=== PATIENT | male | born 1945 | race Caucasian/White ===

== ENCOUNTER 2018-06-21 12:00 | Emergency (ER) | payer MEDICARE, BC, OTHER ==
[2018-06-21] MEDS: predniSONE 20 MG TAB PO (13:30)
[2018-06-21] MEDS: NORCO, ANEXSIA 5/325MG TABLET (HYDROcodone/ACETAMINOPHEN) PO (13:45)
[2018-06-21] MEDS: IPRATROPIUM 0.5MG/ALBUTEROL 2.5MG INH SOL UD 3ML (DUONEB)(J7620) NEB ×2 (14:42→14:43)
[2018-06-21 15:20] LABS: GLUCOSE, FASTING 122 MG/DL (70-100)
[2018-06-21 15:21] LABS: ANION GAP 10 MEQ/L (8-16); AST/SGOT 22 U/L (7-37); BLOOD UREA NITROGEN 17 MG/DL (7-18); CALCIUM LEVEL 8.9 MG/DL (8.8-10.2); CARBON DIOXIDE LEVEL 23 MEQ/L (21-32); CHLORIDE LEVEL 107 MEQ/L (98-107); CREATININE FOR GFR 1.08 MG/DL (0.70-1.30); GLOMERULAR FILTRATION RATE > 60.0 (>42); POTASSIUM SERUM 4.3 MEQ/L (3.5-5.1); SODIUM LEVEL 140 MEQ/L (136-145)
[2018-06-21 15:22] LABS: ALBUMIN 4.1 GM/DL (3.2-5.2); ALBUMIN/GLOBULIN RATIO 1.28 (1.00-1.93); ALKALINE PHOSPHATASE 72 U/L (45-117); ALT/SGPT 35 U/L (12-78); BILIRUBIN,DIRECT 0.1 MG/DL (0.0-0.2); BILIRUBIN,TOTAL 0.3 MG/DL (0.2-1.0); NT-PRO BNP 27 PG/ML (<125); TOTAL PROTEIN 7.3 GM/DL (6.4-8.2)
[2018-06-21 16:02] LABS: HEMATOCRIT 39.6 % (42.0-52.0); HEMOGLOBIN 13.2 g/dl (13.5-17.5); MEAN CORPUSCULAR HEMOGLOBIN 30.3 pg (27.0-33.0); MEAN CORPUSCULAR HGB CONC 33.3 g/dl (32.0-36.5); PLATELET COUNT, AUTOMATED 172 10^3/uL (150-450); RED BLOOD COUNT 4.35 10^6/uL (4.30-6.10); RED CELL DISTRIBUTION WIDTH 14.6 % (11.5-14.5)
== END 2018-06-21 16:23 | disposition home or self-care (01) ==
LOC: M ED 12:00
DX: J20.9 Acute bronchitis, unspecified (principal); E11.9 Type 2 diabetes mellitus without complications; M19.90 Unspecified osteoarthritis, unspecified site; G62.9 Polyneuropathy, unspecified; R91.1 Solitary pulmonary nodule; Z79.82 Long term (current) use of aspirin; Z79.4 Long term (current) use of insulin; Z79.899 Other long term (current) drug therapy; Z88.1 Allergy status to other antibiotic agents; Z88.8 Allergy status to other drugs, medicaments and biological substances; Z91.040 Latex allergy status
CPT/HCPCS: 71046

== ENCOUNTER 2018-06-27 21:09 | Emergency (ER) | payer MEDICARE, BC ==
[2018-06-27 21:55] LABS: KETONE, URINE AUTO RFX NEGATIVE (NEGATIVE); LEUKOCYTE ESTERASE UR AUTO RFX NEGATIVE (NEGATIVE); MUCUS, URINE RFX SMALL (NEGATIVE); NITRITE, URINE AUTO RFX NEGATIVE (NEGATIVE); RBC, URINE AUTO RFX 1 /HPF (0-3); SPECIFIC GRAVITY UR AUTO RFX 1.011 (1.002-1.035); SQUAM EPITHELIAL CELL UR AURFX 0 /HPF (0-6); WBC, URINE AUTO RFX 1 /HPF (0-3)
[2018-06-27 23:17] LABS: BASO # 0.1 10^3/uL (0.0-0.2); EOS # 0.1 10^3/uL (0.0-0.50); EOS % 0.8 % (0.0-3.0); HEMATOCRIT 43.1 % (42.0-52.0); HEMOGLOBIN 14.3 g/dl (13.5-17.5); IMMATURE GRANULOCYTE % 3.3 % (0-3.0); LYMPH # 2.2 10^3/uL (1.5-4.5); LYMPH % 21.8 % (24.0-44.0); MEAN CORPUSCULAR HEMOGLOBIN 30.4 pg (27.0-33.0); MEAN CORPUSCULAR HGB CONC 33.2 g/dl (32.0-36.5); MEAN CORPUSCULAR VOLUME 91.7 fl (80.0-96.0); MONO # 0.8 10^3/uL (0.0-0.8); MONO % 7.7 % (0.0-5.0); NEUTROPHILS # 6.6 10^3/uL (1.8-7.7); NEUTROPHILS % 65.4 % (36.0-66.0); PLATELET COUNT, AUTOMATED 218 10^3/uL (150-450); RED CELL DISTRIBUTION WIDTH 14.9 % (11.5-14.5); WHITE BLOOD COUNT 10.1 10^3/uL (4.0-10.0)
[2018-06-27 23:36] LABS: ANION GAP 9 MEQ/L (8-16); BLOOD UREA NITROGEN 19 MG/DL (7-18); C REACTIVE PROTEIN QUANTITATIV < 0.30 MG/DL (0.00-0.30); CALCIUM LEVEL 9.1 MG/DL (8.8-10.2); CARBON DIOXIDE LEVEL 25 MEQ/L (21-32); CHLORIDE LEVEL 108 MEQ/L (98-107); CREATININE FOR GFR 0.98 MG/DL (0.70-1.30); GLOMERULAR FILTRATION RATE > 60.0 (>42); GLUCOSE, FASTING 138 MG/DL (70-100); POTASSIUM SERUM 4.4 MEQ/L (3.5-5.1); SODIUM LEVEL 142 MEQ/L (136-145)
[2018-06-28] MEDS: AMOXICILLIN 500 MG CAP PO (00:08)
== END 2018-06-28 00:17 | disposition home or self-care (01) ==
LOC: M ED 06-28 00:17
DX: N41.9 Inflammatory disease of prostate, unspecified (principal); N28.1 Cyst of kidney, acquired; N21.0 Calculus in bladder; K76.89 Other specified diseases of liver; E10.9 Type 1 diabetes mellitus without complications; I10 Essential (primary) hypertension; J45.909 Unspecified asthma, uncomplicated; D64.9 Anemia, unspecified; G20 Parkinson's disease; M06.9 Rheumatoid arthritis, unspecified; Z88.1 Allergy status to other antibiotic agents; G35 Multiple sclerosis; Z79.899 Other long term (current) drug therapy; Z79.82 Long term (current) use of aspirin; Z79.4 Long term (current) use of insulin; Z88.3 Allergy status to other anti-infective agents; Z88.8 Allergy status to other drugs, medicaments and biological substances; Z91.040 Latex allergy status
CPT/HCPCS: 74176

== ENCOUNTER 2019-02-01 12:57 | Emergency (ER) | payer MEDICARE, BC ==
[~2019-02-01] VITALS: Ht 195.6 cm; Wt 117.8 kg
[~2019-02-01 12:57] MED LIST: ALFU10TA2 PO; AMOX500C PO; ASPI81TA85 PO; FOLI1TAB11 PO; HUMA75VL SC; HYDR200T3 PO; IPRA0.00 NEB; LISI-1046 PO; METH5INJ SC; NEUR300C PO; NORC1TAB7 PO; PRED20TA PO; PROAAER10 INH; PROV100T25 PO; SIMV10TA2 PO; ZITHTAB PO; [UNRECOGNIZED DRUG - CODE] SL
[2019-02-01] MEDS ORDERED: CIPR-249 PO (15:03)
[2019-02-01 15:05] VITALS: BP 135/80
--- NOTE | 2019-02-02 07:06 | REP ---
ULTRASOUND URINARY BLADDER: Real-time sonographic evaluation of the urinary bladder performed. Bladder measures 5.4 x 5.5 x 7.8 cm for a total volume of 123 mL. Prostate is significantly enlarged measuring 6.1 x 6.6 x 7.1 cm for a total volume of 149.5 mL. Ureteral jets could not be visualized. No calculi are seen in the bladder. Postvoid residual is 6 mL. No other gross abnormalities are seen. Electronically Signed by Fredo Valverde MD 02/02/2019 11:27 A
== END 2019-02-01 15:14 | disposition home or self-care (01) ==
LOC: M ED 12:57
DX: N10 Acute pyelonephritis (principal); N40.1 Benign prostatic hyperplasia with lower urinary tract symptoms; Z87.440 Personal history of urinary (tract) infections; G20 Parkinson's disease; G62.9 Polyneuropathy, unspecified; Z95.1 Presence of aortocoronary bypass graft; Z79.82 Long term (current) use of aspirin; Z79.4 Long term (current) use of insulin; Z79.899 Other long term (current) drug therapy; Z88.8 Allergy status to other drugs, medicaments and biological substances; Z88.1 Allergy status to other antibiotic agents; Z91.040 Latex allergy status

== ENCOUNTER 2021-03-28 09:53 | Emergency (ER) | payer MEDICARE, BC ==
[~2021-03-28] VITALS: Ht 190.5 cm; Wt 121.6 kg
[~2021-03-28 09:53] MED LIST changes: -ALFU10TA2 PO; +ALFU10TA3 PO; -ASPI81TA85 PO; +ASPI81TA86 PO; +CIPR-249 PO; -LISI-1046 PO; +LISI2.5T2 PO; -SIMV10TA2 PO; +SIMV10TA21 PO
[2021-03-28] MEDS ORDERED: CYAN1000VL IM (10:10)
[2021-03-28] MEDS ORDERED: TRES1INJ (10:10)
[2021-03-28 11:51] LABS: BASO % 0.5 % (0.0-1.0); HEMATOCRIT 43.5 % (42.0-52.0); LYMPH % 15.4 % (24.0-44.0); MEAN CORPUSCULAR HEMOGLOBIN 30.4 pg (27.0-33.0); MEAN CORPUSCULAR HGB CONC 32.2 g/dl (32.0-36.5); MEAN CORPUSCULAR VOLUME 94.4 fl (80.0-96.0); MONO # 0.5 10^3/uL (0.0-0.8); MONO % 7.8 % (2.0-8.0); NEUTROPHILS # 4.8 10^3/uL (1.5-8.5); NEUTROPHILS % 75.8 % (36.0-66.0); PLATELET COUNT, AUTOMATED 204 10^3/uL (150-450); RED BLOOD COUNT 4.61 10^6/uL (4.30-6.10); WHITE BLOOD COUNT 6.3 10^3/uL (4.0-10.0)
[2021-03-28 12:01] LABS: INR 0.96
[2021-03-28 12:04] LABS: D-DIMER QUANT 519.06 ng/ml (<500)
[2021-03-28 12:23] LABS: ALBUMIN 3.8 GM/DL (3.2-5.2); BILIRUBIN,DIRECT 0.1 MG/DL (0.0-0.2); BILIRUBIN,TOTAL 0.4 MG/DL (0.2-1.0); TOTAL PROTEIN 6.7 GM/DL (6.4-8.2)
--- NOTE | 2021-03-28 12:52 | REP ---
INDICATION: bilateral leg swelling/hx dvt COMPARISON: None. TECHNIQUE: Valverde scale and color Doppler evaluation using linear high frequency transducer. FINDINGS: Ultrasound examination of the right lower extremity deep venous structures from the common femoral vein through the calf/ankle to include the peroneal, and tibial veins demonstrates normal compressibility flow and wave patterns in response to respiration and augmentation. There is no evidence for deep venous thrombosis. Left lower extremity demonstrates non occluding possibly chronic thrombus in the popliteal vein. Remainder of the left lower extremity examination is normal. IMPRESSION: 1. Normal right lower extremity. 2. Small nonocclusive thrombus in the left popliteal vein possibly chronic. <Electronically signed by Bjorn Hinds > 03/28/21 0576
[2021-03-28] MEDS ORDERED: ISOVUE-370 76% 100ML VIAL As Ordered ONE (13:30)
--- NOTE | 2021-03-28 14:03 | REP ---
INDICATION: small dvt/SOB. COMPARISON: Comparison is made with images from abdominal CT study dated June 27, 2018.. TECHNIQUE: Contrast dose: 75 ML of Isovue [address] technique: Helical scanning is acquired and overlapping 1.5 mm and contiguous 3 mm axial images are reformatted. In addition, maximum intensity projection and multiplanar re-formation images are generated in sagittal and coronal imaging projections. FINDINGS: There is good opacification in the pulmonary arterial tree. There is no evidence of vessel cut off or filling defect to suggest pulmonary embolus. Homogeneous opacity is seen in the thoracic aorta. There is no evidence of aneurysm or dissection. There is no evidence of pleural or pericardial effusion. There is a sliding-type hiatal hernia. Granulomatous lymph node calcifications is visible in the left hilus. There is a granulomatous calcification in the left lower lobe of the lung. Lung window settings demonstrate discoid atelectasis in the left lower lobe and lingula. No definite infiltrate. No pulmonary mass. The heart is enlarged. Coronary artery vascular calcification is observed. Median sternotomy wires are seen. Bone window settings show no bony destructive lesion. In the upper abdomen, there is mild diffuse fatty infiltration of the liver. There is a low-density lesion in the left lobe of the liver consistent with a cyst near the dome of the diaphragm, 1.1 cm in diameter. This is decreased in size from 2018. The gallbladder is surgically absent. There is a cyst in the left kidney measuring 8.0 cm in diameter. This is unchanged. Normal adrenal glands. IMPRESSION: No CT evidence of pulmonary embolus. Discoid atelectasis in the left lower lobe and lingula. Small sliding-type hiatal hernia. Cardiomegaly with vascular calcification. Old granulomatous calcifications. <Electronically signed by Nacho Selby > 03/28/21 1400
[2021-03-28] MEDS ORDERED: ELIQ5TAB PO (15:29)
--- NOTE | 2021-03-28 15:50 | REP ---
INDICATION: DYSPNEA/COUGH. COMPARISON: 06/21/2018 the only prior TECHNIQUE: Portable FINDINGS: The technique utilized in obtaining the radiograph has magnified the cardiac silhouette and accentuated the interstitial markings. Cardiomediastinal silhouette is stable. The nodule seen adjacent to the left heart border is unchanged. This was better imaged on today's CT of the chest. All interested parties should review that report. The right lower lung field has not been included on this portable radiograph. There are no other changes in appearance of the lung mejia. There is no change in the osseous structures. IMPRESSION: Essentially no change other than technique. Findings and limitations as described above. All interested parties should review the CT of the chest report made earlier today as well. <Electronically signed by Ulysses Montano > 03/28/21 1808
[2021-03-28 16:05] VITALS: BP 140/69
--- NOTE | 2021-03-28 22:33 | ECGEPIP ---
[facility] - ED Test Date: 2021-03-28 Pat Name: KRIS TORRES Department: Room: - Gender: Male [place]: : 1945 Requested By: Noemy Khanna Order Number: [id number] Reading MD: Shaun Andrade Measurements Intervals [place] Rate: 65 P: 31 [place]: 192 QRS: -33 QRSD: 102 T: 18 QT: 458 QTc: 476 Interpretive Statements Normal sinus rhythm Left axis deviation Nonspecific T wave abnormality Comparison tracing not on file Electronically Signed on 03-28-2021 22:33:29 EDT by Shaun Andrade
== END 2021-03-28 16:10 | disposition home or self-care (01) ==
LOC: M ED 09:53
DX: I82.402 Acute embolism and thrombosis of unspecified deep veins of left lower extremity (principal); I51.7 Cardiomegaly; R94.31 Abnormal electrocardiogram [ECG] [EKG]; I83.90 Asymptomatic varicose veins of unspecified lower extremity; R06.02 Shortness of breath; Z86.718 Personal history of other venous thrombosis and embolism; E11.9 Type 2 diabetes mellitus without complications; Z86.79 Personal history of other diseases of the circulatory system; Z86.39 Personal history of other endocrine, nutritional and metabolic disease; N40.0 Benign prostatic hyperplasia without lower urinary tract symptoms; J45.909 Unspecified asthma, uncomplicated; G47.30 Sleep apnea, unspecified; Z95.1 Presence of aortocoronary bypass graft; Z79.82 Long term (current) use of aspirin; Z79.4 Long term (current) use of insulin; Z79.01 Long term (current) use of anticoagulants; Z79.899 Other long term (current) drug therapy; Z88.8 Allergy status to other drugs, medicaments and biological substances; Z88.1 Allergy status to other antibiotic agents
CPT/HCPCS: 71045; 71275; 80047; 80076; 83880; 84484; 85025; 85379; 85610; 85730; 93005; 93041; 93970; 94760; 99285; Q9967

== ENCOUNTER 2022-01-23 11:42 | Emergency (ER) | payer MEDICARE, BC ==
[~2022-01-23] VITALS: Ht 195.6 cm; Wt 122.7 kg
[~2022-01-23 11:42] MED LIST changes: +CYAN1000VL IM; +ELIQ5TAB PO; -LISI2.5T2 PO; +LISI2.5T9 PO; +TRES1INJ
[2022-01-23 11:43] VITALS: BP 147/78
== END 2022-01-23 15:29 | disposition left against medical advice (07) ==
LOC: M ED 11:42
DX: Z53.21 Procedure and treatment not carried out due to patient leaving prior to being seen by health care provider (principal)

== ENCOUNTER 2022-03-31 15:54 | Inpatient (IN) | payer MEDICARE, BC ==
[~2022-03-31] VITALS: Ht 195.6 cm; Wt 131.3 kg
[~2022-03-31 15:54] MED LIST changes: -TRES1INJ; +TRES1INJ SUBQ
[2022-03-31 17:42] LABS: BASO % 0.2 % (0.0-1.0); HEMATOCRIT 42.5 % (42.0-52.0); LYMPH # 0.7 10^3/uL (1.5-5.0); LYMPH % 3.7 % (24.0-44.0); MEAN CORPUSCULAR HEMOGLOBIN 31.3 pg (27.0-33.0); MEAN CORPUSCULAR HGB CONC 32.9 g/dl (32.0-36.5); MEAN CORPUSCULAR VOLUME 95.1 fl (80.0-96.0); MONO # 1.3 10^3/uL (0.0-0.8); MONO % 6.8 % (2.0-8.0); NEUTROPHILS % 88.8 % (36.0-66.0); PLATELET COUNT, AUTOMATED 202 10^3/uL (150-450); RED BLOOD COUNT 4.47 10^6/uL (4.30-6.10); WHITE BLOOD COUNT 19.1 10^3/uL (4.0-10.0)
[2022-03-31 17:56] LABS: INR 1.1; PROTHROMBIN TIME 14.6 SECONDS (12.7-14.5)
[2022-03-31 18:14] LABS: ALBUMIN 3.9 GM/DL (3.2-5.2); ALT/SGPT 29 U/L (12-78); AMYLASE 17 U/L (25-115); BILIRUBIN,DIRECT 0.2 MG/DL (0.0-0.2); BILIRUBIN,TOTAL 0.6 MG/DL (0.2-1.0); BLOOD UREA NITROGEN 14 MG/DL (7-18); C REACTIVE PROTEIN QUANTITATIV 3.71 MG/DL (0.00-0.30); CALCIUM LEVEL 9.2 MG/DL (8.8-10.2); CARBON DIOXIDE LEVEL 27 MEQ/L (21-32); CHLORIDE LEVEL 108 MEQ/L (98-107); CK-MB VALUE MASS 2.8 NG/ML (<3.6); CREATININE FOR GFR 1.07 MG/DL (0.70-1.30); GLOMERULAR FILTRATION RATE > 60.0 (>42); GLUCOSE, FASTING 144 MG/DL (70-100); MB/CK RELATIVE INDEX 1.31 (< OR =4); POTASSIUM SERUM 4.2 MEQ/L (3.5-5.1); SODIUM LEVEL 139 MEQ/L (136-145); TOTAL PROTEIN 6.5 GM/DL (6.4-8.2)
[2022-03-31 18:25] LABS: ABG HCO3 22.6 MEQ/L (22.0-26.0); ABG O2 SATURATION 96.6 % (95.0-99.0); ABG PARTIAL PRESSURE O2 81.7 mmHg (75.0-100.0); ABG STANDARD HCO3 24.5 MEQ/L (22.0-26.0); ABG TOTAL CO2 23.6 MEQ/L (23.0-31.0); ABG pH (ARTERIAL) 7.481 UNITS (7.350-7.450)
[2022-03-31 18:56] LABS: APPEARANCE, URINE CLOUDY (CLEAR); BACTERIA, URINE AUTO 1+ (NEGATIVE); BILIRUBIN, URINE AUTO NEGATIVE (NEGATIVE); BLOOD, URINE BLOOD 2+ (NEGATIVE); COLOR, URINE AMBER (YELLOW); GLUCOSE, URINE (UA) AUTO NEGATIVE (NEGATIVE); KETONE, URINE AUTO TRACE mg/dL (NEGATIVE); LEUKOCYTE ESTERASE, URINE AUTO 3+ (NEGATIVE); MUCUS, URINE SMALL (NEGATIVE); NITRITE, URINE AUTO NEGATIVE (NEGATIVE); PROTEIN, URINE AUTO 2+ mg/dL (NEGATIVE); RBC, URINE AUTO 28 /HPF (0-3); SQUAMOUS EPITHELIAL CELL UR AU 0 /HPF (0-6); UROBILINOGEN, URINE AUTO 0.2 mg/dL (0.0-2.0); WBC, URINE AUTO TNTC /HPF (0-3)
[2022-03-31] MEDS ORDERED: VANCOMYCIN HCL 1,000 MG, VIAL MATE ADAPTER 1 EACH in NS 250 ML IV ONE (19:20)
[2022-03-31] MEDS ORDERED: CIPROFLOXACIN 200 MG in IV 1 EA IV ONE (19:20)
[2022-03-31] MEDS ORDERED: ELIQ5TAB PO (19:53)
[2022-03-31] MEDS ORDERED: INSUHUMDS SC (19:53)
[2022-03-31] MEDS ORDERED: ALB2.5NEB INH (19:53)
[2022-03-31] MEDS ORDERED: MODA200T15 PO (19:53)
[2022-03-31] MEDS ORDERED: ASPI81TA26 PO (19:53)
[2022-03-31] MEDS ORDERED: VITA100093 PO (19:57)
[2022-03-31] MEDS ORDERED: OXYM05SP (19:57)
[2022-03-31] MEDS ORDERED: HOME MED LIST COMPLETE! XX SCH (20:00)
[2022-03-31] MEDS ORDERED: GLUCAGON INJ 1MG VIAL SC PRN (20:35)
[2022-03-31] MEDS ORDERED: DEXTROSE 50% 50 ML SYRINGE IV PRN (20:35)
[2022-03-31] MEDS ORDERED: GLUCOSE 4GM CHEW TABLET PO PRN (20:35)
[2022-03-31] MEDS ORDERED: MOM 30ML SUSPENSION UDC PO PRN (20:35)
[2022-03-31] MEDS ORDERED: **hydrALAZINE** 10 MG TAB PO ONE (20:50)
[2022-03-31] MEDS ORDERED: LABETALOL 100MG/20ML VIAL IV STA (20:52)
[2022-03-31] MEDS: INSULIN LISPRO (NovoLOG) PER UNIT SC SCH (21:28)
[2022-03-31 22:06] VITALS: BP 195/92
[2022-03-31] MEDS: NS 1,000 ML IV SCH (22:07)
[2022-03-31] MEDS: cefTRIAXone SOD 1 GM in D5W MINI-BAG PLUS 50 ML IV SCH (22:07)
[2022-03-31] MEDS: ACETAMINOPHEN TAB 650MG DOSE (2X325MG) PO PRN (22:49)
[2022-03-31 23:35] VITALS: BP 134/62
[2022-04-01] VITALS (10 sets, daily range): BP systolic 108–136; BP diastolic 56–64; O2SAT 92–96
[2022-04-01] MEDS: NS 1,000 ML IV SCH (05:48)
[2022-04-01 06:10] LABS: BLOOD UREA NITROGEN 14 MG/DL (7-18); CALCIUM LEVEL 8.3 MG/DL (8.8-10.2); CARBON DIOXIDE LEVEL 23 MEQ/L (21-32); CHLORIDE LEVEL 108 MEQ/L (98-107); CREATININE FOR GFR 1.08 MG/DL (0.70-1.30); GLOMERULAR FILTRATION RATE > 60.0 (>42); GLUCOSE, FASTING 146 MG/DL (70-100); SODIUM LEVEL 140 MEQ/L (136-145)
[2022-04-01] MEDS ORDERED: SODIUM CHLORIDE NASAL 0.65% SPRAY BTL (OCEAN) PRN (08:05)
[2022-04-01] MEDS: ACETAMINOPHEN TAB 650MG DOSE (2X325MG) PO PRN ×2 (08:25→17:48)
[2022-04-01] MEDS: INSULIN LISPRO (NovoLOG) PER UNIT SC SCH ×4 (08:25→20:21)
[2022-04-01] MEDS: cefTRIAXone SOD 1 GM in D5W MINI-BAG PLUS 50 ML IV SCH (20:32)
[2022-04-02] VITALS: BP 119/57
[2022-04-02 04:07] VITALS: BP 112/56
[2022-04-02 06:21] LABS: HEMATOCRIT 34.7 % (42.0-52.0); MEAN CORPUSCULAR HEMOGLOBIN 31.6 pg (27.0-33.0); MEAN CORPUSCULAR HGB CONC 33.4 g/dl (32.0-36.5); MEAN CORPUSCULAR VOLUME 94.6 fl (80.0-96.0); PLATELET COUNT, AUTOMATED 135 10^3/uL (150-450); RED BLOOD COUNT 3.67 10^6/uL (4.30-6.10); WHITE BLOOD COUNT 18.1 10^3/uL (4.0-10.0)
[2022-04-02 06:22] LABS: HEMOGLOBIN 11.6 g/dl (13.5-17.5)
[2022-04-02 06:47] LABS: ALBUMIN 2.7 GM/DL (3.2-5.2); ALT/SGPT 18 U/L (12-78); BILIRUBIN,TOTAL 0.6 MG/DL (0.2-1.0); BLOOD UREA NITROGEN 17 MG/DL (7-18); CALCIUM LEVEL 8.4 MG/DL (8.8-10.2); CARBON DIOXIDE LEVEL 22 MEQ/L (21-32); CHLORIDE LEVEL 109 MEQ/L (98-107); CREATININE FOR GFR 0.93 MG/DL (0.70-1.30); GLOMERULAR FILTRATION RATE > 60.0 (>42); GLUCOSE, FASTING 147 MG/DL (70-100); POTASSIUM SERUM 3.7 MEQ/L (3.5-5.1); SODIUM LEVEL 140 MEQ/L (136-145); TOTAL PROTEIN 5.3 GM/DL (6.4-8.2)
[2022-04-02 07:22] VITALS: BP 115/58
[2022-04-02] MEDS: INSULIN LISPRO (NovoLOG) PER UNIT SC SCH (08:24)
[2022-04-02] MEDS ORDERED: LEVO250T3 PO (09:15)
== END 2022-04-02 11:23 | disposition home or self-care (01) | DRG 871 ==
LOC: M ED 15:54 → M ED INP 21:01 → ENRESERV 22:23 → M PCU 23:33
PROVIDERS: ADMIT Family Medicine; ATTEND Family Medicine
DX: A41.9 Sepsis, unspecified organism (principal); G93.41 Metabolic encephalopathy; N39.0 Urinary tract infection, site not specified; E11.42 Type 2 diabetes mellitus with diabetic polyneuropathy; G20 Parkinson's disease; G47.33 Obstructive sleep apnea (adult) (pediatric); J45.909 Unspecified asthma, uncomplicated; E78.5 Hyperlipidemia, unspecified; D64.9 Anemia, unspecified; B96.1 Klebsiella pneumoniae [K. pneumoniae] as the cause of diseases classified elsewhere; Z90.49 Acquired absence of other specified parts of digestive tract; Z86.73 Personal history of transient ischemic attack (TIA), and cerebral infarction without residual deficits; Z79.01 Long term (current) use of anticoagulants; Z79.82 Long term (current) use of aspirin; Z79.4 Long term (current) use of insulin; Z79.899 Other long term (current) drug therapy; Z88.8 Allergy status to other drugs, medicaments and biological substances

== ENCOUNTER 2023-05-18 12:51 | Emergency (ER) | payer MEDICARE, BC ==
[~2023-05-18] VITALS: Ht 182.9 cm; Wt 115.5 kg
[~2023-05-18 12:51] MED LIST changes: +ALB2.5NEB INH; +ASPI81TA26 PO; -HYDR200T3 PO; +HYDR200T46 PO; +INSUHUMDS SC; +LEVO1TAB38 PO; +MODA200T15 PO; +OXYM05SP; +VITA100093 PO
[2023-05-18 16:06] VITALS: BP 151/70; TEMP 98.5; O2SAT 100
== END 2023-05-18 16:12 | disposition home or self-care (01) ==
LOC: M ED 12:51
DX: S62.316A Displaced fracture of base of fifth metacarpal bone, right hand, initial encounter for closed fracture (principal); W01.0XXA Fall on same level from slipping, tripping and stumbling without subsequent striking against object, initial encounter; Y92.009 Unspecified place in unspecified non-institutional (private) residence as the place of occurrence of the external cause; Y93.01 Activity, walking, marching and hiking; Y99.8 Other external cause status; Z88.8 Allergy status to other drugs, medicaments and biological substances; Z79.899 Other long term (current) drug therapy; Z79.4 Long term (current) use of insulin; Z79.51 Long term (current) use of inhaled steroids; Z79.01 Long term (current) use of anticoagulants; E11.40 Type 2 diabetes mellitus with diabetic neuropathy, unspecified; Z86.718 Personal history of other venous thrombosis and embolism; G47.33 Obstructive sleep apnea (adult) (pediatric); J45.909 Unspecified asthma, uncomplicated; Z87.442 Personal history of urinary calculi; N40.0 Benign prostatic hyperplasia without lower urinary tract symptoms; Z85.72 Personal history of non-Hodgkin lymphomas

== ENCOUNTER 2023-09-08 04:16 | Emergency (ER) | payer MEDICARE, BC ==
[~2023-09-08] VITALS: Ht 195.6 cm; Wt 120.0 kg
[2023-09-08] MEDS ORDERED: INSU100I40 SQ (04:51)
[2023-09-08] MEDS ORDERED: HUMA100I3 SC (04:51)
[2023-09-08 05:06] LABS: BASO % 0.5 % (0.0-1.0); HEMATOCRIT 40.8 % (42.0-52.0); HEMOGLOBIN 13.6 g/dl (13.5-17.5); LYMPH # 0.9 10^3/uL (1.5-5.0); LYMPH % 15.1 % (24.0-44.0); MEAN CORPUSCULAR HEMOGLOBIN 31.5 pg (27.0-33.0); MEAN CORPUSCULAR HGB CONC 33.3 g/dl (32.0-36.5); MEAN CORPUSCULAR VOLUME 94.4 fl (80.0-96.0); MONO # 0.6 10^3/uL (0.0-0.8); MONO % 9.1 % (2.0-8.0); NEUTROPHILS # 4.6 10^3/uL (1.5-8.5); NEUTROPHILS % 74.3 % (36.0-66.0); PLATELET COUNT, AUTOMATED 170 10^3/uL (150-450); RED BLOOD COUNT 4.32 10^6/uL (4.30-6.10); WHITE BLOOD COUNT 6.2 10^3/uL (4.0-10.0)
[2023-09-08 05:18] LABS: INR 1.18; PROTHROMBIN TIME 14.6 SECONDS (12.5-14.5)
[2023-09-08 05:19] LABS: PARTIAL THROMBOPLASTIN TIME 30.9 SECONDS (24.8-34.2)
[2023-09-08 05:31] LABS: LIPASE 39 U/L (12-53)
[2023-09-08 05:33] LABS: ALKALINE PHOSPHATASE 92 U/L (46-116); ALT/SGPT 32 U/L (7.0-40); AST/SGOT 23 U/L (<34); BILIRUBIN,DIRECT 0.2 MG/DL (<0.4); BILIRUBIN,TOTAL 0.4 MG/DL (0.3-1.2); BLOOD UREA NITROGEN 14 MG/DL (9-23); CALCIUM LEVEL 9.6 MG/DL (8.3-10.6); CARBON DIOXIDE LEVEL 24 MMOL/L (20-31); CHLORIDE LEVEL 109 MMOL/L (98-107); CREATININE FOR GFR 0.81 MG/DL (0.70-1.30); GLOMERULAR FILTRATION RATE > 60.0 (>42); GLUCOSE, FASTING 148 MG/DL (74-106); POTASSIUM SERUM 4.3 MMOL/L (3.5-5.1); SODIUM LEVEL 144 MMOL/L (136-145); TOTAL PROTEIN 6.7 G/DL (5.7-8.2)
[2023-09-08 05:36] LABS: RSV AMPLIFICATION NEGATIVE (NEGATIVE)
[2023-09-08] MEDS ORDERED: CIPR500T39 PO (07:37)
[2023-09-08 10:02] VITALS: BP 145/77; TEMP 97; O2SAT 98
== END 2023-09-08 10:19 | disposition home or self-care (01) ==
LOC: M ED 04:16
DX: N39.0 Urinary tract infection, site not specified (principal); R31.9 Hematuria, unspecified; E11.9 Type 2 diabetes mellitus without complications; G20.A1 Parkinson's disease without dyskinesia, without mention of fluctuations; Z85.72 Personal history of non-Hodgkin lymphomas; D64.9 Anemia, unspecified; N40.1 Benign prostatic hyperplasia with lower urinary tract symptoms; Z86.73 Personal history of transient ischemic attack (TIA), and cerebral infarction without residual deficits; Z95.1 Presence of aortocoronary bypass graft; Z86.718 Personal history of other venous thrombosis and embolism; Z79.01 Long term (current) use of anticoagulants; Z79.4 Long term (current) use of insulin; Z79.899 Other long term (current) drug therapy; Z88.1 Allergy status to other antibiotic agents; Z88.8 Allergy status to other drugs, medicaments and biological substances

== ENCOUNTER → 2024-11-10 | Outpatient (REF) | payer MEDICARE, BC ==
[~2024-11-10] MED LIST changes: +ALFU10TA23 PO; -ALFU10TA3 PO; +CIPR500T39 PO; +HUMA100I3 SC; +INSU100I40 SQ
[2024-11-10 18:06] LABS: APPEARANCE, URINE CLEAR (CLEAR); BACTERIA, URINE AUTO NEGATIVE (NEGATIVE); BILIRUBIN, URINE AUTO NEGATIVE (NEGATIVE); BLOOD, URINE BLOOD NEGATIVE (NEGATIVE); COLOR, URINE YELLOW (YELLOW); GLUCOSE, URINE (UA) AUTO 1+ mg/dL (NEGATIVE); KETONE, URINE AUTO NEGATIVE (NEGATIVE); LEUKOCYTE ESTERASE, URINE AUTO NEGATIVE (NEGATIVE); MUCUS, URINE SMALL (NEGATIVE); NITRITE, URINE AUTO NEGATIVE (NEGATIVE); PROTEIN, URINE AUTO 1+ mg/dL (NEGATIVE); RBC, URINE AUTO 0 /HPF (0-3); SPECIFIC GRAVITY URINE AUTO 1.021 (1.002-1.035); SQUAMOUS EPITHELIAL CELL UR AU 0 /HPF (0-6); UROBILINOGEN, URINE AUTO 0.2 mg/dL (0.0-2.0); WBC, URINE AUTO 1 /HPF (0-3)
== END ==
LOC: M SMT 16:58
PROVIDERS: ATTEND Physician Assistant
DX: R31.0 Gross hematuria (principal)

== ENCOUNTER → 2025-04-15 | Outpatient (REF) | payer MEDICARE, BC | LOC: M SFHCDERM 12:56 | PROVIDERS: ATTEND Physician Assistant | DX: L08.9 Local infection of the skin and subcutaneous tissue, unspecified (principal) ==

== ENCOUNTER 2025-05-03 09:24 | Inpatient (IN) | payer MEDICARE, BC ==
[~2025-05-03] VITALS: Ht 195.6 cm; Wt 113.6 kg
[2025-05-03] MEDS ORDERED: TRES1INJ INJ (09:36)
[2025-05-03] MEDS ORDERED: INSU100I24 INJ (09:36)
[2025-05-03 10:16] LABS: KETONE, URINE MANUAL REFLEX NEGATIVE (NEGATIVE); NITRITE, URINE MANUAL RFX NEGATIVE (NEGATIVE); PROTEIN, URINE MANUAL REFLEX 3+ mg/dL (NEGATIVE); UROBILINOGEN, UA MANUAL REFLEX NORMAL (NORMAL)
[2025-05-03 10:17] LABS: HYALINE CAST, URINE RFX NONE SEEN /lpf (0-1); MICROSCOPIC EXAM RFX PERFORMED; RBC, URINE MAN REFLEX 40-50 /hpf (0-3); SP GRAVITY,URINE MANUAL REFLEX 1.015 (1.002-1.035); SQUAMOUS EPITHELIAL URINE RFX SMALL AMOUNT /hpf (SMALL AMT)
[2025-05-03 10:20] LABS: BASO # 0.0 10^3/uL (0.0-0.2); BASO % 0.6 % (0.0-1.0); EOS # 0.0 10^3/uL (0.0-0.5); EOS % 0.0 % (0.0-3.0); LYMPH # 1.0 10^3/uL (1.5-5.0); LYMPH % 14.3 % (24.0-44.0); MONO # 0.5 10^3/uL (0.0-0.8); MONO % 7.4 % (2.0-8.0); NEUTROPHILS # 5.5 10^3/uL (1.5-8.5); NEUTROPHILS % 77.1 % (36.0-66.0); PLATELET COUNT, AUTOMATED 203 10^3/uL (150-450)
[2025-05-03 10:33] LABS: INR 1.09
[2025-05-03 10:47] LABS: CALCIUM LEVEL 8.6 MG/DL (8.3-10.6); CARBON DIOXIDE LEVEL 20.0 MMOL/L (20-31); CHLORIDE LEVEL 108.0 MMOL/L (98-107); CREATININE FOR GFR 0.88 MG/DL (0.70-1.30); GLOMERULAR FILTRATION RATE 86.4 (>35); POTASSIUM SERUM 4.8 MMOL/L (3.5-5.1); SODIUM LEVEL 143.0 MMOL/L (136-145)
[2025-05-03] MEDS: FUROSEMIDE 20 MG/2 ML VIAL IV ONE (14:47)
[2025-05-03] MEDS ORDERED: HOME MED LIST COMPLETE! XX SCH (16:30)
[2025-05-03] MEDS ORDERED: ALBU8.5H INH (16:30)
[2025-05-03] MEDS ORDERED: LOSA25TA13 PO (16:30)
[2025-05-03] MEDS ORDERED: ALBUTEROL SULFATE 2.5 MG/0.5 ML INH CONCENTRATE NEB SOLN INH PRN (16:35)
[2025-05-03] MEDS ORDERED: GLUCOSE 4 GM CHEW PO PRN (17:05)
[2025-05-03] MEDS ORDERED: GLUCAGON INJ 1 MG VIAL SC PRN (17:05)
[2025-05-03] MEDS ORDERED: DEXTROSE 50% 50 ML SYRINGE IV PRN (17:05)
[2025-05-03] MEDS: SIMVASTATIN 10 MG TAB PO SCH (18:45)
[2025-05-03] MEDS: INSULIN LISPRO (NovoLOG) PER UNIT SC SCH ×2 (18:46→21:00)
[2025-05-03 23:18] VITALS: BP 152/79; TEMP 97.8; O2SAT 96
[2025-05-03] MEDS: amLODIPine 5 MG TAB PO SCH (23:23)
[2025-05-03] MEDS: HYDROXYCHLOROQUINE 200 MG TAB PO SCH (23:23)
[2025-05-04 05:22] VITALS: BP 144/74; TEMP 97.7; O2SAT 94
[2025-05-04 06:31] LABS: BASO # 0.0 10^3/uL (0.0-0.2); BASO % 0.3 % (0.0-1.0); EOS # 0.0 10^3/uL (0.0-0.5); EOS % 0.0 % (0.0-3.0); LYMPH # 0.9 10^3/uL (1.5-5.0); LYMPH % 9.0 % (24.0-44.0); MONO # 0.9 10^3/uL (0.0-0.8); MONO % 8.9 % (2.0-8.0); NEUTROPHILS # 8.4 10^3/uL (1.5-8.5); NEUTROPHILS % 81.1 % (36.0-66.0); PLATELET COUNT, AUTOMATED 184 10^3/uL (150-450)
[2025-05-04 07:03] LABS: CALCIUM LEVEL 8.7 MG/DL (8.3-10.6); CARBON DIOXIDE LEVEL 27.0 MMOL/L (20-31); CHLORIDE LEVEL 106.0 MMOL/L (98-107); CREATININE FOR GFR 0.96 MG/DL (0.70-1.30); GLOMERULAR FILTRATION RATE 79.4 (>35); POTASSIUM SERUM 4.3 MMOL/L (3.5-5.1); SODIUM LEVEL 145.0 MMOL/L (136-145)
[2025-05-04] MEDS: FOLIC ACID 1 MG TAB PO SCH (10:00)
[2025-05-04 12:00] VITALS: BP 157/76; TEMP 97.2; O2SAT 95
[2025-05-04] MEDS: PREVNAR-20 VACCINE 0.5ML SYRINGE IM.IMMUN ONE (12:47)
[2025-05-04 20:46] VITALS: BP 134/71; TEMP 97.9; O2SAT 95
[2025-05-04 20:47] VITALS: BP 134/71
[2025-05-04] MEDS: ACETAMINOPHEN 325 MG TAB PO PRN (20:49)
[2025-05-05 04:15] VITALS: BP 158/80; TEMP 97.5; O2SAT 96
[2025-05-05 06:50] LABS: BASO # 0.0 10^3/uL (0.0-0.2); BASO % 0.4 % (0.0-1.0); EOS # 0.0 10^3/uL (0.0-0.5); EOS % 0.1 % (0.0-3.0); LYMPH # 1.2 10^3/uL (1.5-5.0); LYMPH % 16.1 % (24.0-44.0); MONO # 0.6 10^3/uL (0.0-0.8); MONO % 8.7 % (2.0-8.0); NEUTROPHILS # 5.3 10^3/uL (1.5-8.5); NEUTROPHILS % 74.0 % (36.0-66.0); PLATELET COUNT, AUTOMATED 191 10^3/uL (150-450)
[2025-05-05 07:19] LABS: CALCIUM LEVEL 8.6 MG/DL (8.3-10.6); CARBON DIOXIDE LEVEL 27.0 MMOL/L (20-31); CHLORIDE LEVEL 106.0 MMOL/L (98-107); CREATININE FOR GFR 0.92 MG/DL (0.70-1.30); GLOMERULAR FILTRATION RATE 83.6 (>35); POTASSIUM SERUM 4.4 MMOL/L (3.5-5.1); SODIUM LEVEL 143.0 MMOL/L (136-145)
[2025-05-05] MEDS ORDERED: OXYB5TAB14 PO (08:29)
[2025-05-05 12:00] VITALS: BP 138/76; TEMP 97; O2SAT 96
== END 2025-05-05 12:33 | disposition home or self-care (01) | DRG 696 ==
LOC: M ED 09:24 → M ED INP 16:34 → M MSPAV 22:11
PROVIDERS: ADMIT Internal Medicine Nephrology; ATTEND Internal Medicine
DX: R31.0 Gross hematuria (principal); G47.33 Obstructive sleep apnea (adult) (pediatric); I10 Essential (primary) hypertension; E11.42 Type 2 diabetes mellitus with diabetic polyneuropathy; M06.9 Rheumatoid arthritis, unspecified; G20.A1 Parkinson's disease without dyskinesia, without mention of fluctuations; N40.0 Benign prostatic hyperplasia without lower urinary tract symptoms; J45.909 Unspecified asthma, uncomplicated; D64.9 Anemia, unspecified; N32.89 Other specified disorders of bladder; K59.09 Other constipation; E78.5 Hyperlipidemia, unspecified; Z93.0 Tracheostomy status; Z86.74 Personal history of sudden cardiac arrest; Z90.49 Acquired absence of other specified parts of digestive tract; Z87.442 Personal history of urinary calculi; Z86.718 Personal history of other venous thrombosis and embolism; Z95.1 Presence of aortocoronary bypass graft; Z85.79 Personal history of other malignant neoplasms of lymphoid, hematopoietic and related tissues; Z79.01 Long term (current) use of anticoagulants; Z79.899 Other long term (current) drug therapy

== ENCOUNTER → 2025-07-14 | Outpatient (CLI) | payer MEDICARE, BC ==
[~2025-07-14] MED LIST changes: +ALBU8.5H INH; +INSU100I24 INJ; +LOSA25TA13 PO; +OXYB5TAB14 PO; +TRES1INJ INJ
== END ==
LOC: M ADAMS 09:21
PROVIDERS: ATTEND Urology
DX: Z01.818 Encounter for other preprocedural examination (principal); N40.1 Benign prostatic hyperplasia with lower urinary tract symptoms; N39.0 Urinary tract infection, site not specified

== ENCOUNTER → 2025-07-14 | Outpatient (CLI) | payer MEDICARE, BC ==
[2025-07-14 13:20] LABS: PLATELET COUNT, AUTOMATED 225 10^3/uL (150-450)
[2025-07-14 13:28] LABS: CALCIUM LEVEL 9.5 MG/DL (8.3-10.6); CARBON DIOXIDE LEVEL 30.0 MMOL/L (20-31); CHLORIDE LEVEL 104.0 MMOL/L (98-107); CREATININE FOR GFR 0.91 MG/DL (0.70-1.30); GLOMERULAR FILTRATION RATE 84.7 (>35); POTASSIUM SERUM 4.7 MMOL/L (3.5-5.1); SODIUM LEVEL 143.0 MMOL/L (136-145)
== END ==
LOC: M LABDRWAD 10:23
PROVIDERS: ATTEND Urology
DX: Z01.818 Encounter for other preprocedural examination (principal); N40.1 Benign prostatic hyperplasia with lower urinary tract symptoms; N39.0 Urinary tract infection, site not specified

== ENCOUNTER → 2025-07-14 | Outpatient (REF) | payer MEDICARE, BC | LOC: M LABSMT 08:18 | PROVIDERS: ATTEND Urology | DX: Z53.9 Procedure and treatment not carried out, unspecified reason (principal) ==

== ENCOUNTER → 2025-07-22 | Outpatient (REF) | payer MEDICARE, BC ==
[~2025-07-22] MED LIST changes: +CLIN1GEL37 TOP; +SODI88SP
[2025-07-22 17:53] LABS: ESTIMATED AVERAGE GLUCOSE 177.0 MG/DL (60-110)
== END ==
LOC: M LABDRWAD 13:01
PROVIDERS: ATTEND Family Medicine
DX: Z01.810 Encounter for preprocedural cardiovascular examination (principal); E11.9 Type 2 diabetes mellitus without complications

== ENCOUNTER → 2025-07-27 | Outpatient (REF) | payer MEDICARE, BC | LOC: M SMT 12:41 | PROVIDERS: ATTEND Urology | DX: Z01.818 Encounter for other preprocedural examination (principal); N40.1 Benign prostatic hyperplasia with lower urinary tract symptoms; N39.0 Urinary tract infection, site not specified ==

== ENCOUNTER 2025-08-05 14:01 | Day surgery (SDC) | payer MEDICARE, BC ==
[~2025-08-05] VITALS: Ht 195.6 cm; Wt 116.6 kg
[~2025-08-05 14:01] MED LIST changes: +LIDOCAINE 2% 100 MG/5 ML SDV (FOR ANES.) As Ordered ONE; +MIDAZOLAM INJ 2 MG/2 ML VIAL As Ordered ONE; +ROCURONIUM BROMIDE 50MG/5ML VIAL As Ordered ONE
[2025-08-05] MEDS ORDERED: LR 1,000 ML IV SCH (14:05)
[2025-08-05] MEDS: ceFAZolin SOD 2 GM IV ONCE IV ONE (16:36)
[2025-08-05] MEDS ORDERED: CEFP200T PO (16:43)
[2025-08-05] MEDS ORDERED: OXYB5TAB14 PO (16:43)
[2025-08-05] MEDS ORDERED: PHENYLephrine 500MCG 5ML (100MCG/ML) SYRINGE As Ordered ONE (17:35)
[2025-08-05] MEDS ORDERED: FUROSEMIDE 100 MG/10 ML VIAL As Ordered ONE (19:39)
[2025-08-05] MEDS ORDERED: ACETAMINOPHEN 1000MG/100ML IV BAG As Ordered ONE (19:45)
[2025-08-05] MEDS ORDERED: HYDROMORPHONE HCL 0.5 MG/0.5 ML SYRINGE IV PRN (19:55)
[2025-08-05] MEDS ORDERED: MORPHINE 4 MG/ML 1 ML VIAL IV PRN (19:55)
[2025-08-05] MEDS ORDERED: ONDANSETRON 4MG/2ML VIAL As Ordered ONE (20:32)
[2025-08-05] MEDS: ONDANSETRON 4MG/2ML VIAL IV PRN (20:35)
[2025-08-05] MEDS: INSULIN LISPRO (NovoLOG) PER UNIT SC SCH (21:00)
[2025-08-05] MEDS ORDERED: ALBUTEROL 90 MCG/ACT 8 GM HFA INHALER INH PRN (21:20)
[2025-08-05] MEDS: LOSARTAN 25 MG TAB PO SCH (21:20)
[2025-08-05] MEDS ORDERED: DEXTROSE 50% 50 ML SYRINGE IV PRN (21:20)
[2025-08-05] MEDS ORDERED: ONDANSETRON 4MG/2ML VIAL IV PRN (21:20)
[2025-08-05] MEDS ORDERED: GLUCAGON INJ 1 MG VIAL SC PRN (21:20)
[2025-08-05] MEDS ORDERED: GLUCOSE 4 GM CHEW PO PRN (21:20)
[2025-08-05 22:35] VITALS: BP 152/80; TEMP 97.3; O2SAT 95
[2025-08-05] MEDS: ACETAMINOPHEN 325 MG TAB PO PRN (23:06)
[2025-08-05 23:46] VITALS: BP 150/86; TEMP 98; O2SAT 94
[2025-08-06 04:32] VITALS: BP 146/72; TEMP 97.9; O2SAT 93
[2025-08-06] MEDS: INSULIN LISPRO (NovoLOG) PER UNIT SC SCH (07:30)
[2025-08-06 08:00] VITALS: BP 132/92; TEMP 97.7; O2SAT 94
[2025-08-06] MEDS: DOCUSATE SODIUM 100 MG CAPSULE PO SCH (08:58)
[2025-08-06 12:00] VITALS: BP 167/82; TEMP 98.3; O2SAT 94
== END 2025-08-06 12:30 | disposition home or self-care (01) ==
LOC: M SDC 14:01 → M MSPAV 22:27 → M SDC 08-06 12:30
PROVIDERS: ATTEND Urology
DX: N40.0 Benign prostatic hyperplasia without lower urinary tract symptoms (principal); E11.9 Type 2 diabetes mellitus without complications; G47.33 Obstructive sleep apnea (adult) (pediatric); Z86.73 Personal history of transient ischemic attack (TIA), and cerebral infarction without residual deficits; Z88.8 Allergy status to other drugs, medicaments and biological substances; Z88.1 Allergy status to other antibiotic agents; Z88.4 Allergy status to anesthetic agent; Z79.899 Other long term (current) drug therapy
CPT/HCPCS: 52601; C1894; J0131; J0688; J1815; J1938; J2250; J2371; J2405; J3010